=== PATIENT | male | born 1975 | race Caucasian/White ===

== ENCOUNTER → 2019-10-24 | Outpatient (CLI) | payer OTHER ==
--- NOTE | 2019-10-24 09:49 | RAD ---
ANKLE RIGHT 3V, FOOT RIGHT 2V 10/24/2019 12:00 AM INDICATION: Ankle fracture 4 years ago. Recent injury with peroneal tendinitis. COMPARISON: None available. TECHNIQUE: 3 views of the right foot and 3 views of the right ankle are provided. FINDINGS/ IMPRESSION: There is no acute fracture or dislocation. Lateral plate and screw fixation of the distal fibula is noted with 8 screws. No lucency is identified along the hardware. No fracture of the screws. Tibial plafond and talar dome are intact. Calcaneus is intact. Tarsals, metatarsals and phalanges are normal in appearance. No significant soft tissue abnormality. Bone mineralization is within normal limits. No osseous erosion or subcutaneous gas. Electronically signed by: Kareen De Leon MD (10/24/2019 9:46 AM) [id number]
== END | disposition home or self-care (01) ==
LOC: RAD 09:05
PROVIDERS: ATTEND Physician Assistant
DX: M84.371A Stress fracture, right ankle, initial encounter for fracture (principal); M76.71 Peroneal tendinitis, right leg; X58.XXXA Exposure to other specified factors, initial encounter; Y93.89 Activity, other specified; Y92.89 Other specified places as the place of occurrence of the external cause; Y99.8 Other external cause status
CPT/HCPCS: 73610; 73620

== ENCOUNTER → 2020-04-20 | Outpatient (CLI) | payer OTHER ==
--- NOTE | 2020-04-20 12:15 | RAD ---
Left RIBS with PA chest. HISTORY: Injury to left ribs, pain PA view was taken of the chest. Patient's taken a poor inspiration. There is no pneumothorax or pleur al effusion. There are no confluent infiltrates. The heart is normal in size. AP and oblique views we re taken of the left ribs. The lower ribs are not optimally evaluated. There is mild deformity of the anterior third, fourth, fifth and sixth ribs which appear to be old fractures with mild callus. An a cute nondisplaced fracture would be difficult to exclude. IMPRESSION: 1. Old left rib fractures. 2. An acute nondisplaced fracture would be difficult to exclude. 3. Lower ribs are poorly evaluated. 5. No pneumothorax or pleural effusion. Electronically signed by: Jase Krause MD (04/20/2020 12:12 PM) [id number]
== END ==
LOC: PMG 11:16
PROVIDERS: ATTEND Nurse Practitioner Family
DX: S22.32XA Fracture of one rib, left side, initial encounter for closed fracture (principal); X58.XXXA Exposure to other specified factors, initial encounter; Y93.89 Activity, other specified; Y92.89 Other specified places as the place of occurrence of the external cause; Y99.8 Other external cause status
CPT/HCPCS: 71101